=== PATIENT | female | born 1995 | race Two or more races ===

== ENCOUNTER 2017-08-10 17:52 | Emergency (ER) | payer MEDICAID, OTHER ==
[~2017-08-10] VITALS: Ht 160 cm; Wt 134.7 kg
[2017-08-10 18:53] LABS: Basophils # (auto) 0.1 uL; Basophils % (auto) 0.6 % (0.0-2.0); Eosinophils # (auto) 0.1 uL; Eosinophils % (auto) 1.4 % (0.0-7.0); Hematocrit 44.4 % (36.0-46.0); Lymphocytes # (auto) 2.4 uL; Mean Corpuscular Hemoglobin 31.6 pg (28.0-32.0); Mean Corpuscular Hgb Conc. 33.9 g/dL (32.0-36.0); Mean Corpuscular Volume 93.4 fL (80.0-100.0); Monocytes # (auto) 0.5 uL; Monocytes % (auto) 5.1 % (0.0-12.0); Neutrophils # (auto) 6.5 uL; Neutrophils % (auto) 67.9 % (37.0-80.0); Nucleated Red Blood Cells % 0.1 %; Platelet Count (auto) 296 10^3/uL (140-450); Red Blood Cells 4.75 10^6/uL (4.0-5.20); Red Cell Distribution Width 12.6 % (11.8-14.3); White Blood Cell 9.6 10^3/uL (4.4-10.8)
[2017-08-10 19:11] LABS: Albumin 3.9 g/dL (3.4-5.0); BUN/Creatinine Ratio 18.1; Calcium 8.8 mg/dL (8.5-10.1); Potassium 3.9 mmol/L (3.5-5.1)
[2017-08-10 19:13] LABS: Bilirubin, Total 0.4 mg/dL (0.2-1.0); Total Protein 8.3 g/dL (6.4-8.2)
[2017-08-10 19:18] LABS: Urine Bacteria NONE SEEN /hpf (None Seen); Urine Blood Negative /uL (Negative); Urine Mucus FEW (None Seen); Urine Specific Gravity 1.021 (1.001-1.035); Urine WBC 1 /hpf (0 - 5)
[2017-08-10] MEDS ORDERED: SODIUM CHLORIDE 0.9% 1,000 ML IV ONE (22:30)
[2017-08-11 02:12] VITALS: BP 120/63
== END 2017-08-11 02:34 | disposition left against medical advice (07) ==
LOC: ER 17:52
DX: E11.65 Type 2 diabetes mellitus with hyperglycemia (principal); R42 Dizziness and giddiness; R51 Headache; I10 Essential (primary) hypertension
CPT/HCPCS: 36415; 71045; 80053; 81001; 81025; 85025; 93005; 96360

== ENCOUNTER 2018-07-24 06:13 | Inpatient (IN) | payer MEDICAID ==
[~2018-07-24] VITALS: Ht 160 cm; Wt 112.0 kg
[2018-07-24 06:51] LABS: Basophils # (auto) 0.1 uL; Eosinophils # (auto) 0.1 uL; Eosinophils % (auto) 0.6 % (0.0-7.0); Hematocrit 43.7 % (36.0-46.0); Hemoglobin 14.9 g/dL (12.2-16.2); Lymphocytes # (auto) 1.1 uL; Lymphocytes % (auto) 8.3 % (10.0-50.0); Mean Corpuscular Hemoglobin 32.6 pg (28.0-32.0); Mean Corpuscular Hgb Conc. 34.1 g/dL (32.0-36.0); Mean Corpuscular Volume 95.8 fL (80.0-100.0); Monocytes # (auto) 0.5 uL; Monocytes % (auto) 3.6 % (0.0-12.0); Neutrophils # (auto) 11.9 uL; Neutrophils % (auto) 86.5 % (37.0-80.0); Nucleated Red Blood Cells % 0.1 %; Platelet Count (auto) 296 10^3/uL (140-450); Red Blood Cells 4.56 10^6/uL (4.0-5.20); Red Cell Distribution Width 12.4 % (11.8-14.3); White Blood Cell 13.8 10^3/uL (4.4-10.8)
[2018-07-24 07:07] LABS: Albumin 3.8 g/dL (3.4-5.0); Calcium 8.9 mg/dL (8.5-10.1); Potassium 3.8 mmol/L (3.5-5.1)
[2018-07-24 07:09] LABS: Urine Bacteria NONE SEEN /hpf (None Seen); Urine Blood Negative /uL (Negative); Urine Specific Gravity 1.036 (1.001-1.035); Urine WBC 36 /hpf (0 - 5)
[2018-07-24 07:10] LABS: Bilirubin, Total 0.6 mg/dL (0.2-1.0); Total Protein 8.2 g/dL (6.4-8.2)
[2018-07-24] MEDS ORDERED: ONDANSETRON HCL 4 MG/2 ML VIAL IV ONE (09:30)
[2018-07-24] MEDS ORDERED: MORPHINE SULFATE 4 MG/ML SYR/VIAL IV ONE (09:30)
[2018-07-24] MEDS ORDERED: TEMAZEPAM 15 MG CAP PO PRN (10:30)
[2018-07-24] MEDS ORDERED: PROMETHAZINE HCL 25 MG/ML 1ML IV PRN (10:30)
[2018-07-24] MEDS ORDERED: NITROGLYCERIN 0.4 MG SL TAB SL PRN (10:30)
[2018-07-24] MEDS ORDERED: cefTRIAXone 1GM/50ML D5W 50 ML IV ONE (10:30)
[2018-07-24] MEDS ORDERED: MORPHINE SULF INJ 2 MG/ML SYRINGE 1ML IV PRN (10:30)
[2018-07-24] MEDS ORDERED: DEXTROSE (50%) 50ML SYRG IV PRN (10:30)
[2018-07-24 10:47] LABS: Amylase 31 U/L (25-115); Lipase 92 U/L (73-393)
--- NOTE | 2018-07-24 11:30 | NUR ---
ARRIVED ON FLOOR
[2018-07-24] MEDS: InsuLIN REG 1unit/0.01ml Soln (100units/ml) SC SCH ×3 (11:38→20:37)
[2018-07-24] MEDS: ACCU-CHEK COMFORT CURVE STRIP VI SCH ×3 (11:38→20:36)
[2018-07-24] MEDS: traMADol HCL 50 MG TAB PO PRN ×2 (12:00→20:48)
[2018-07-24] MEDS: SODIUM CHLORIDE 0.9% 1,000 ML IV SCH ×2 (12:04→20:22)
[2018-07-24 12:39] VITALS: BP 128/70
[2018-07-24] MEDS: metroNIDAZOLE 500MG/100ML 100 ML IV SCH ×2 (14:27→22:14)
[2018-07-24] MEDS: ACETAMINOPHEN 500 MG TAB PO PRN ×2 (16:29→22:56)
[2018-07-24 16:46] VITALS: BP 110/71
--- NOTE | 2018-07-24 19:35 | NUR ---
Opening Shift Note Assumed care of patient, awake and alert. No S/S of distress/SOB. Still complaining of abdominal pain. Discussed on POC and to call for assist PRN, patient verbalized understanding, call light within reach, will continue to monitor for changes Q1hr and PRN.
[2018-07-24 20:00] VITALS: BP 142/80
[2018-07-24 21:36] VITALS: BP 142/88
[2018-07-24] MEDS: FAMOTIDINE 20 MG TAB PO SCH (22:14)
[2018-07-25] MEDS: ACCU-CHEK COMFORT CURVE STRIP VI SCH ×6 (00:21→20:36)
[2018-07-25] MEDS: InsuLIN REG 1unit/0.01ml Soln (100units/ml) SC SCH ×6 (00:22→20:36)
[2018-07-25] MEDS: ACETAMINOPHEN 500 MG TAB PO PRN ×3 (04:28→17:36)
[2018-07-25 05:15] VITALS: BP 131/87
[2018-07-25] MEDS: metroNIDAZOLE 500MG/100ML 100 ML IV SCH ×3 (05:54→16:47)
[2018-07-25 06:09] LABS: Basophils # (auto) 0 uL; Basophils % (auto) 0.2 % (0.0-2.0); Eosinophils # (auto) 0.1 uL; Eosinophils % (auto) 0.6 % (0.0-7.0); Hematocrit 39.7 % (36.0-46.0); Hemoglobin 13.4 g/dL (12.2-16.2); Lymphocytes # (auto) 1.3 uL; Lymphocytes % (auto) 11.9 % (10.0-50.0); Mean Corpuscular Hemoglobin 32.8 pg (28.0-32.0); Mean Corpuscular Hgb Conc. 33.6 g/dL (32.0-36.0); Mean Corpuscular Volume 97.6 fL (80.0-100.0); Monocytes # (auto) 0.6 uL; Monocytes % (auto) 5.5 % (0.0-12.0); Neutrophils # (auto) 8.7 uL; Neutrophils % (auto) 81.8 % (37.0-80.0); Nucleated Red Blood Cells % 0.1 %; Platelet Count (auto) 226 10^3/uL (140-450); Red Blood Cells 4.07 10^6/uL (4.0-5.20); Red Cell Distribution Width 12.5 % (11.8-14.3); White Blood Cell 10.6 10^3/uL (4.4-10.8)
[2018-07-25] MEDS: SODIUM CHLORIDE 0.9% 1,000 ML IV SCH ×2 (06:20→16:50)
--- NOTE | 2018-07-25 07:45 | NUR ---
Opening Shift Note Assumed care of patient, awake, alert, and oriented x4. No S/S of distress/SOB or pain. IV is in left AC asymptomatic, intact, patent, and infusing normal saline at 100 mL/hour. Bed is locked and in lowest position and call light is within reach. Instructed on POC and to call for assist PRN, and patient verbalized understanding. Will continue to monitor for changes Q1hr and PRN.
[2018-07-25 08:56] VITALS: BP 109/67
[2018-07-25] MEDS: cefTRIAXone 1GM/50ML D5W 50 ML IV SCH (09:16)
[2018-07-25] MEDS: FAMOTIDINE 20 MG TAB PO SCH ×2 (10:43→21:31)
[2018-07-25 13:00] VITALS: BP 126/69
[2018-07-25] MEDS: traMADol HCL 50 MG TAB PO PRN ×2 (13:08→21:31)
[2018-07-25 16:43] VITALS: BP 134/78
--- NOTE | 2018-07-25 17:00 | NUR ---
Dr. Shankar at bedside to consult patient. New orders received. Will continue to monitor patient Q1.
--- NOTE | 2018-07-25 19:30 | NUR ---
Opening Shift Note Assumed care of patient, awake and alert. No S/S of distress/SOB. Complaining of pain in the cyst area. Updated on POC and to call for assist PRN, patient verbalized understanding, call light within reach, will continue to monitor for changes Q1hr and PRN.
[2018-07-25 20:00] VITALS: BP 142/80
[2018-07-26 00:13] VITALS: BP 149/101
[2018-07-26] MEDS: ACCU-CHEK COMFORT CURVE STRIP VI SCH ×4 (00:28→12:19)
[2018-07-26] MEDS: ACETAMINOPHEN 500 MG TAB PO PRN ×2 (00:28→08:20)
[2018-07-26] MEDS: InsuLIN REG 1unit/0.01ml Soln (100units/ml) SC SCH ×4 (00:29→12:19)
[2018-07-26] MEDS: SODIUM CHLORIDE 0.9% 1,000 ML IV SCH ×2 (02:22→12:22)
[2018-07-26 05:43] VITALS: BP 140/88
[2018-07-26] MEDS: metroNIDAZOLE 500MG/100ML 100 ML IV SCH ×2 (05:43→14:00)
--- NOTE | 2018-07-26 07:00 | NUR ---
Opening Shift Note Assumed care of patient, awake, alert, and oriented x4. No S/S of distress/SOB, but patient is reporting pain in vagina of 5/10. IV is in left AC 20 gauge asymptomatic, intact, patent, and saline locked. Bed locked and in lowest position and call light is within reach. Instructed on POC and to call for assist PRN, and patient verbalized understanding. Will continue to monitor for changes Q1hr and PRN.
[2018-07-26] MEDS: cefTRIAXone 1GM/50ML D5W 50 ML IV SCH (08:57)
[2018-07-26] MEDS: FAMOTIDINE 20 MG TAB PO SCH (08:58)
[2018-07-26 09:00] VITALS: BP 134/80
--- NOTE | 2018-07-26 12:00 | NUR ---
Dr. Shankar at bedside, new orders received.
[2018-07-26 13:00] VITALS: BP 127/76
[2018-07-26 14:58] VITALS: BP 127/76
--- NOTE | 2018-07-26 15:47 | NUR ---
Discharge instructions given as ordered. Encourage to follow up with PMD as instructed. All questions and concerns addressed. Patient verbalized understanding. Medication reconciliation form completed and copy given to patient. IV removed with catheter intact, pressure dressing applied. Telemetry unit returned to [facility]. Patient taken to vehicle via wheelchair with all personal belongings, accompanied by staff and family member. No distress noted at time of departure.
[2018-07-26] MEDS: traMADol HCL 50 MG TAB PO PRN (15:49)
== END 2018-07-26 15:47 | disposition home or self-care (01) | DRG 532 ==
LOC: ER 06:13 → TELE-WESTW 10:22
PROVIDERS: ADMIT Internal Medicine; ATTEND Internal Medicine Pulmonary Disease
DX: N88.8 Other specified noninflammatory disorders of cervix uteri (principal); K65.9 Peritonitis, unspecified; E11.65 Type 2 diabetes mellitus with hyperglycemia; E66.01 Morbid (severe) obesity due to excess calories; N30.90 Cystitis, unspecified without hematuria; K52.9 Noninfective gastroenteritis and colitis, unspecified; Z68.41 Body mass index [BMI] 40.0-44.9, adult; E86.0 Dehydration; Z83.3 Family history of diabetes mellitus; Z87.891 Personal history of nicotine dependence; R59.1 Generalized enlarged lymph nodes
CPT/HCPCS: 36415; 74176; 80053; 81001; 81025; 82150; 82962; 83036; 83690; 85025; 87086; 96365; 96367; 96375; G0378; J0696; J1815; J2405; J3490

== ENCOUNTER 2023-11-11 02:27 | Emergency (ER) | payer MEDICAID ==
[~2023-11-11] VITALS: Ht 160 cm; Wt 118.2 kg
[2023-11-11 02:50] VITALS: BP 118/79; PULSE 68; RESP 18; TEMP 98.7; O2SAT 97
[2023-11-11] MEDS: DONNATAL 5ml ORAL Elix (BELLADONNA ALK-PHENOBARB) PO ONE (04:25)
[2023-11-11] MEDS: MAALOX PLUS or MAALOX 30 ML PO ONE (04:25)
[2023-11-11] MEDS: LIDOCAINE VISCOUS 2% 15ML UD MT ONE (04:25)
[2023-11-11] MEDS ORDERED: PANT40TA2 PO (04:32)
== END 2023-11-11 04:41 | disposition home or self-care (01) ==
LOC: ER 02:27
DX: K21.9 Gastro-esophageal reflux disease without esophagitis (principal); E11.9 Type 2 diabetes mellitus without complications; Z79.899 Other long term (current) drug therapy